=== PATIENT | male | born 1995 | race Caucasian/White ===

== ENCOUNTER 2022-04-20 16:18 | Emergency (ER) | payer SELFPAY ==
[2022-04-20] VITALS (7 sets, daily range): BP systolic 113–156; BP diastolic 57–99; PULSE 87–106; RESP 18–21; TEMP 36.7–37.2; O2SAT 94–99; BMI 27.1
--- NOTE | 2022-04-20 16:18 | ECG_ITS ---
APPROVED REPORT Exam: Resting ECG HR:109 bpm ECG Measurements Heart Rate 109 AXES CO 154 P 75 QRSd 89 QRS 85 QT 326 T -50 QTc 390 Conclusion SINUS TACHYCARDIA POSSIBLE LEFT ATRIAL ENLARGEMENT [-0.1mV P-WAVE IN V1/V2] POSSIBLE LEFT VENTRICULAR HYPERTROPHY [VOLTAGE CRITERIA PLUS LAE OR QRS WIDENING] MODERATE T-WAVE ABNORMALITY, CONSIDER INFERIOR ISCHEMIA [-0.1+ mV T-WAVE IN II/aVF] ABNORMAL ECG INTERPRETATION BASED ON A DEFAULT AGE OF 40 YEARS UNCONFIRMED REPORT Electronically signed by : Obi Baker MD 04/22/2022 21:06:00
--- NOTE | 2022-04-20 17:00 | PC.NURSE ---
COVID SWAB SENT TO LAB
--- NOTE | 2022-04-20 17:04 | XR_ITS ---
PROCEDURE INFORMATION: Exam: XR Chest Exam date and time: 04/20/2022 5:18 PM Age: 27 years old Clinical indication: Chest pressure; Patient HX: Chest pain for 1 month TECHNIQUE: Imaging protocol: Radiologic exam of the chest. Views: 1 view. COMPARISON: No relevant prior studies available. FINDINGS: Lungs: Unremarkable. No consolidation. Pleural spaces: Unremarkable. No pleural effusion. No pneumothorax. Heart/Mediastinum: Unremarkable. No cardiomegaly. Bones/joints: Unremarkable. IMPRESSION: No acute findings.
--- NOTE | 2022-04-20 17:09 | PC.NURSE ---
rad at bs
[2022-04-20 17:19] LABS: Basophils # 0.1 K/mm3 (0-0.2); Basophils % 0.6 % (0.1-2.0); Eosinophils # 0.1 K/mm3 (0.0-0.4); Eosinophils % 0.4 % (0.1-12.0); Hemoglobin 15.6 g/dL (14.1-18.0); Lymphocytes # 1.6 K/mm3 (0.7-4.5); Lymphocytes % 10.1 % (10-50); Mean Corpuscular HGB Conc 33.2 g/dL (31.8-35.4); Mean Corpuscular Hemoglobin 29.2 pg (27.0-31.2); Mean Platelet Volume 8.8 fl (7.4-10.4); Monocytes # 0.7 K/mm3 (0.1-1.0); Monocytes % 4.6 % (1.7-9.3); Neutrophils # 13.4 K/mm3 (1.8-7.8); Neutrophils % 84.3 % (37.0-80.0); Platelet Count 349 K/mm3 (142-424); Red Blood Count 5.34 M/mm3 (4.60-6.20); Red Cell Distribution Width 12.2 % (11.5-17.5); White Blood Count 15.8 K/mm3 (4.8-10.8)
[2022-04-20 17:20] LABS: Anion Gap 9.6 mEq/L (5-15); Blood Urea Nitrogen 11 mg/dl (9-20); Calcium 9.6 mg/dl (8.4-10.2); Carbon Dioxide 28 mmol/L (22.0-30.0); Chloride 103 mmol/L (98-107); Creatinine Clearance Estimated 141 mL/min (50-200); Estimated Glomerular Filt Rate 91 ml/min (>60); GFR (African American) 110 ML/MIN (>60); Glucose 102 mg/dl (74-100); Potassium 3.6 mmoL/L (3.5-5.1); Sodium 137 mmol/L (136-145)
--- NOTE | 2022-04-20 17:23 | PC.NURSE ---
pt sitting up in bed, reports now having a headache behind L ear and down his neck. Notified ER
[2022-04-20 17:25] LABS: Coronavirus 19, PCR Not Detected (NotDetected); Influenza A, PCR Not Detected (NotDetected); Influenza B, PCR Not Detected (NotDetected)
--- NOTE | 2022-04-20 17:27 | PC.NURSE ---
LARON ERNANDEZ at
[2022-04-20 17:32] LABS: MANUAL DIFFERENTIAL MANUAL DIFFERENTIAL (MANUAL DIFF)
[2022-04-20 17:33] LABS: Troponin I < 0.01 ng/ml (0.00-0.034)
--- NOTE | 2022-04-20 17:43 | CT_ITS ---
PROCEDURE INFORMATION: Exam: CTA Chest With Contrast Exam date and time: 04/20/2022 6:11 PM Age: 27 years old Clinical indication: Sternal or substernal pain; Additional info: Cp, syncope TECHNIQUE: Imaging protocol: Computed tomographic angiography of the chest with contrast. 3D rendering (Not supervised by radiologist): MIP and/or 3D reconstructed images were created by the technologist. Radiation optimization: All CT scans at this facility use at least one of these dose optimization techniques: automated exposure control; mA and/or kV adjustment per patient size (includes targeted exams where dose is matched to clinical indication); or iterative reconstruction. Contrast material: ISOVUE 370; Contrast volume: 70 ml; Contrast route: INTRAVENOUS (IV); COMPARISON: CR XR CHEST PORTABLE 04/20/2022 5:18 PM FINDINGS: Pulmonary arteries: Normal. No pulmonary emboli. Aorta: Unremarkable. No aortic aneurysm. No aortic dissection. Lungs: Unremarkable. No consolidation. No masses. Pleural spaces: Unremarkable. No pneumothorax. No pleural effusion. Heart: Unremarkable. No cardiomegaly. No pericardial effusion. Lymph nodes: Unremarkable. No enlarged lymph nodes. Bones/joints: Unremarkable. No acute fracture. Soft tissues: Unremarkable. IMPRESSION: No acute findings.
--- NOTE | 2022-04-20 17:43 | CT_ITS ---
PROCEDURE INFORMATION: Exam: CT Head Without Contrast Exam date and time: 04/20/2022 5:59 PM Age: 27 years old Clinical indication: Injury or trauma; Fall; Blunt trauma (contusions or hematomas); Without loss of consciousness; Additional info: Headache, syncope TECHNIQUE: Imaging protocol: Computed tomography of the head without contrast. Radiation optimization: All CT scans at this facility use at least one of these dose optimization techniques: automated exposure control; mA and/or kV adjustment per patient size (includes targeted exams where dose is matched to clinical indication); or iterative reconstruction. COMPARISON: No relevant prior studies available. FINDINGS: Brain: Normal. No hemorrhage. Unremarkable white matter. No mass effect. Cerebral ventricles: No ventriculomegaly. Paranasal sinuses: Visualized sinuses are unremarkable. No fluid levels. Mastoid air cells: Visualized mastoid air cells are well aerated. Bones/joints: Unremarkable. No acute fracture. Soft tissues: Unremarkable. IMPRESSION: No acute intracranial abnormality.
--- NOTE | 2022-04-20 17:43 | HMH.EDGENADL ---
ED Disposition Condition on Discharge: Good - Critical Care Critical Care Time: No <JameelJosemanuel luciano - Last Filed: 04/20/22 18:29> Condition on Discharge: Good Time of Disposition: 19:32 - Critical Care Critical Care Time: No <Meaghan Contreras - Last Filed: 04/20/22 20:53> Clinical Impression: Syncope and collapse, Neck pain Chest pain Qualifiers: Chest pain type: unspecified Qualified Code(s): R07.9 - Chest pain, unspecified Headache Qualifiers: Headache type: unspecified Headache chronicity pattern: acute headache Intractability: not intractable Qualified Code(s): R51.9 - Headache, unspecified Disposition: Still a Patient Additional Instructions: You have been evaluated for chest pain, syncope. It is very important that you follow-up with cardiology, Dr. Villasenor tomorrow in clinic. Please arrive to the [facility] cardiology clinic at 9:30 AM. Do not exert yourself or workout until you are cleared by cardiology. It is okay to take Tylenol or Motrin for pain tonight. Return to the emergency department for any new or worsening symptoms, pain, palpitations. Referrals: Provider,MD Alfredo [Primary Care Provider] - Hudson Villasenor MD [Staff Physician] - Attestation: On 04/20/22, the high probability of a clinically significant, sudden or life threatening deterioration of the following system(s) required my full and direct attention, intervention and personal management. The time I documented below is in addition to time spent performing reported procedures but includes the following listed in this critical care notation. Medical Decision Making - Medical Records Medical records reviewed: Yes: I reviewed the patient's medical records. MR Comment: Reviewed patient's emergency department note from 03/10/2022 at [facility] versus [facility]. Patient presented with similar symptoms of syncope, chest pain, unilateral left neck pain. Cardiac work-up negative including D-dimer. No CT scans or echocardiogram. - Navid Inquiry Pt receiving controlled substance: No - Lab Data Result diagrams: 04/20/22 16:25 04/20/22 16:25 <Josemanuel Ghotra - Last Filed: 04/20/22 18:29> - Lab Data Result diagrams: 04/20/22 16:25 04/20/22 16:25 <Meaghan Contreras - Last Filed: 04/20/22 20:53> Vital Signs: 04/20/22 16:24 04/20/22 16:30 04/20/22 17:00 Temperature 99.0 F Temperature Source Oral Pulse Rate 104 H 92 H Pulse Rate [Right Radial] 106 H Respiratory Rate 18 18 18 Blood Pressure 143/87 H 113/57 L Blood Pressure [Right Arm] 156/99 H Blood Pressure Mean 105 75 Blood Pressure Mean [Right Arm] 118 Blood Pressure Source [Right Arm] Automatic Cuff Blood Pressure Position [Right Arm] Sitting 02 Sat by Pulse Oximetry 98 99 99 Oxygen Delivery Method Room Air 04/20/22 17:30 04/20/22 18:29 04/20/22 18:30 Temperature Temperature Source Pulse Rate 91 H 87 87 Pulse Rate [Right Radial] Respiratory Rate 18 18 18 Blood Pressure 124/74 147/83 H 137/74 Blood Pressure [Right Arm] Blood Pressure Mean 84 100 91 Blood Pressure Mean [Right Arm] Blood Pressure Source [Right Arm] Blood Pressure Position [Right Arm] 02 Sat by Pulse Oximetry 94 L 97 97 Oxygen Delivery Method - Lab Data Lab Results 04/20/22 16:25: WBC 15.8 H, RBC 5.34, Hgb 15.6, Hct 47.0, MCV 88.0, MCH 29.2, MCHC 33.2, RDW 12.2, Plt Count 349, MPV 8.8, Neut % (Auto) 84.3 H, Lymph % (Auto) 10.1, [place] % (Auto) 4.6, Eos % (Auto) 0.4, Baso % (Auto) 0.6, Neut # (Auto) 13.4 H, Lymph # (Auto) 1.6, [place] # (Auto) 0.7, Eos # (Auto) 0.1, Baso # (Auto) 0.1, Total Counted 100, Neutrophils % (Manual) 79 H, Lymphocytes % (Manual) 15, Monocytes % (Manual) 6, Platelet Estimate Normal, RBC Morphology Normal 04/20/22 16:25: Sodium 137, Potassium 3.6, Chloride 103, Carbon Dioxide 28, Anion Gap 9.6, BUN 11, Creatinine 1.00, Estimated Creat Clear 141, Estimated GFR 91, Est GFR ( Amer) 110, Glucose 102 H,
--- NOTE | 2022-04-20 17:52 | CT_ITS ---
PROCEDURE INFORMATION: Exam: CTA Neck With Contrast Exam date and time: 04/20/2022 6:03 PM Age: 27 years old Clinical indication: Pain; Headache; Additional info: L headache, syncope TECHNIQUE: Imaging protocol: Computed tomographic angiography of the neck with contrast. 3D rendering (Not supervised by radiologist): MIP and/or 3D reconstructed images were created by the technologist. Radiation optimization: All CT scans at this facility use at least one of these dose optimization techniques: automated exposure control; mA and/or kV adjustment per patient size (includes targeted exams where dose is matched to clinical indication); or iterative reconstruction. Contrast material: [id number]; Contrast volume: 75 ml; Contrast route: INTRAVENOUS (IV); COMPARISON: CT HEAD/BRAIN WO CON 04/20/2022 5:59 PM. FINDINGS: Right common carotid artery: No stenosis. No dissection or occlusion. Right internal carotid artery: No stenosis of the extracranial segment. No dissection or occlusion. Right external carotid artery: No occlusion or stenosis of the origin. Left common carotid artery: No stenosis. No dissection or occlusion. 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 Left internal carotid artery: No stenosis of the extracranial segment. No dissection or occlusion. Left external carotid artery: No occlusion or stenosis of the origin. 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 No focal high-grade stenosis. No dissection or occlusion. Left vertebral artery: Dominant left vertebral artery. No stenosis. No dissection or occlusion. Soft tissues: There are no soft tissue masses or fluid collections. Bones/joints: No acute fracture. Lungs: Lung apices are unremarkable as visualized. No consolidation. IMPRESSION: 1. No stenosis or occlusion. 2. Additional nonemergency and chronic findings as above. REFERENCES: NASCET CRITERIA. The degree of internal carotid artery stenosis is based on NASCET criteria. Normal is no stenosis. Mild is less than 50% stenosis. Moderate is 50-69% stenosis. Severe is 70% to 99% stenosis. Total occlusion is no detectable patent lumen.
--- NOTE | 2022-04-20 17:52 | CT_ITS ---
PROCEDURE INFORMATION: Exam: CTA Head With Contrast, Arteriography Exam date and time: 04/20/2022 6:03 PM Age: 27 years old Clinical indication: Pain; Headache; Additional info: L headache, syncope TECHNIQUE: Imaging protocol: Computed tomographic angiography of the head with contrast. Exam focused on the arteries. 3D rendering (Not supervised by radiologist): MIP and/or 3D reconstructed images were created by the technologist. Radiation optimization: All CT scans at this facility use at least one of these dose optimization techniques: automated exposure control; mA and/or kV adjustment per patient size (includes targeted exams where dose is matched to clinical indication); or iterative reconstruction. Contrast material: ISOVUE 370; Contrast volume: 75 ml; Contrast route: INTRAVENOUS (IV); COMPARISON: CT HEAD/BRAIN WO CON 04/20/2022 5:59 PM FINDINGS: ANTERIOR CIRCULATION: Right internal carotid artery: Unremarkable. Intracranial segment is patent with no significant stenosis. No aneurysm. Right middle cerebral artery: Unremarkable. No occlusion or significant stenosis. No aneurysm. Right anterior cerebral artery: Unremarkable. No occlusion or significant stenosis. No aneurysm. Relatively slightly small A1 segment of the right anterior cerebral artery, patent enhancing anterior communicating artery. Left internal carotid artery: Unremarkable. Intracranial segment is patent with no significant stenosis. No aneurysm. Left middle cerebral artery: Unremarkable. No occlusion or significant stenosis. No aneurysm. Left anterior cerebral artery: Unremarkable. No occlusion or significant stenosis. No aneurysm. 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 No occlusion. No aneurysm. Left vertebral artery: Dominant left vertebral artery. No occlusion or significant stenosis. No aneurysm. Basilar artery: Unremarkable. No occlusion or significant stenosis. No aneurysm. Right posterior cerebral artery: No acute findings. The P1 segment of the right posterior cerebral artery appears hypoplastic, and there is normal variant origin of the right posterior cerebral artery arising from the right internal carotid artery. No occlusion or significant stenosis. No aneurysm. Left posterior cerebral artery: Unremarkable. No occlusion or significant stenosis. No aneurysm. Brain: No definite mass, mass effect, or midline shift. Cerebral ventricles: No ventriculomegaly. Bones/joints: No acute skull fracture. No lytic lesions. Soft tissues: There are no soft tissue masses or fluid collections. IMPRESSION: 1. No large vessel stenosis or occlusion. 2. Some developmental asymmetries, as above.
--- NOTE | 2022-04-20 17:53 | PC.NURSE ---
PT GOING FOR CT'S
[2022-04-20 18:19] LABS: Lymphocytes % 15 % (10-50); Monocytes % 6 % (2-9); Neutrophils % 79 % (42-76); Total Cells Counted 100
[2022-04-20 18:20] LABS: Platelet Estimate Normal; RBC Morphology Normal
[2022-04-20 18:56] LABS: Microscopic, Urine URINE MICROSCOPIC (MICROSCOPIC)
[2022-04-20 18:58] LABS: Appearance,Urine CLEAR (Clear); Bilirubin,Urine Negative (Negative); Blood, Urine Negative (Negative); Color,Urine YELLOW (Yellow); Glucose,Urine (UA) Negative (Negative); Ketones,Urine 1+ (Negative); Leukocyte Esterase,Urine Negative (Negative); Nitrate,Urine Negative (Negative); PH,Urine 6.5 (5.0-8.5); Protein,Urine Negative (Negative); Urobilinogen,Urine 0.2 EU/dl (0.2)
[2022-04-20 19:11] LABS: Barbiturates Screen,Urine Negative ng/ml (<200); Benzodiazepines Screen,Urine Negative ng/ml (<200)
[2022-04-20 19:12] LABS: Amphetamine/Metha Screen,Urine Negative ng/ml (<1000); Bacteria,Urine 1+ /lpf; RBC,Urine Occasional #/hpf (0-3); WBC,Urine Occasional #/hpf (0-3)
[2022-04-20 19:13] LABS: Cannabinoid Screen,Urine Negative ng/ml (<50); Cocaine Screen,Urine Negative ng/ml (<300)
[2022-04-20 19:14] LABS: Methadone Screen,Urine Negative ng/ml (<300); Opiate Screen,Urine Negative ng/ml (<300)
[2022-04-20 19:15] LABS: Phencyclidine Screen,Urine Negative ng/ml (<25)
--- NOTE | 2022-04-20 19:32 | PC.NURSE ---
Dr. Contreras s/w Dr. Villasenor. States to have pt follow up in clinic @ [id number] 04/21/22
--- NOTE | 2022-04-20 20:24 | ECG_ITS ---
APPROVED REPORT Exam: Resting ECG HR:73 bpm ECG Measurements Heart Rate 73 AXES TX 165 P 59 QRSd 89 QRS 85 QT 382 T 46 QTc 407 Conclusion SINUS RHYTHM WITH SINUS ARRHYTHMIA VOLTAGE CRITERIA FOR LVH [MEETS CRITERIA IN ONE OF: R(aVL), S(V1), R(V5), R(V5/V6)+S(V1)] NONSPECIFIC T-WAVE ABNORMALITY ABNORMAL ECG WARNING: DATA QUALITY MAY AFFECT INTERPRETATION INTERPRETATION BASED ON A DEFAULT AGE OF 42 YEARS UNCONFIRMED REPORT Electronically signed by : Obi Baker MD 04/22/2022 21:05:32
[2022-04-20 20:31] LABS: Troponin I < 0.01 ng/ml (0.00-0.034)
== END 2022-04-20 21:04 | disposition home or self-care (01) ==
PROVIDERS: Emergency Provider Emergency Medicine
DX: R07.9 Chest pain, unspecified (principal); R55 Syncope and collapse; M54.2 Cervicalgia; R51.9 Headache, unspecified
CPT/HCPCS: 70450; 70496; 70498; 71045; 71275; 80048; 80305; 81001; 84484; 85007; 85025; 93005; 96374; 96375; 99285; C9803; J2405; Q9967; U0003; U0005

== ENCOUNTER → 2022-04-21 10:15 | Outpatient (CLI) | payer SELFPAY | PROVIDERS: Visit Provider Nurse Practitioner | DX: R06.00 Dyspnea, unspecified (principal); R00.2 Palpitations; R07.9 Chest pain, unspecified | CPT/HCPCS: 93270 ==

== ENCOUNTER 2022-04-27 00:02 | Emergency (ER) | payer SELFPAY ==
[2022-04-27 00:03] VITALS: BP 154/98; PULSE 87; RESP 16; TEMP 36.9; O2SAT 100; BMI 27.1
--- NOTE | 2022-04-27 00:48 | ECG_ITS ---
APPROVED REPORT Exam: Resting ECG HR:98 bpm ECG Measurements Heart Rate 98 AXES VT 159 P 71 QRSd 92 QRS 84 QT 355 T 12 QTc 410 Conclusion SINUS RHYTHM NONSPECIFIC ST & T-WAVE ABNORMALITY BORDERLINE ECG UNCONFIRMED REPORT Electronically signed by : Obi Baker MD 04/27/2022 13:53:50
--- NOTE | 2022-04-27 00:48 | XR_ITS ---
PROCEDURE INFORMATION: Exam: XR Chest Exam date and time: 04/27/2022 1:02 AM Age: 27 years old Clinical indication: Chest wall pain; Additional info: Chest pain TECHNIQUE: Imaging protocol: Radiologic exam of the chest. Views: 2 views. COMPARISON: CR XR CHEST PORTABLE 04/20/2022 5:18 PM FINDINGS: Lungs: No focal consolidation. Pleural spaces: No pleural effusion. No pneumothorax. Heart/Mediastinum: Unremarkable cardiomediastinal silhouette. Bones/joints: No acute osseous findings. IMPRESSION: No focal consolidation.
[2022-04-27 00:55] LABS: Basophils # 0.3 K/mm3 (0-0.2); Basophils % 3.4 % (0.1-2.0); Eosinophils # 0.1 K/mm3 (0.0-0.4); Hematocrit 49.6 % (42.0-52.0); Hemoglobin 15.4 g/dL (14.1-18.0); Lymphocytes # 3.1 K/mm3 (0.7-4.5); Lymphocytes % 31.1 % (10-50); Mean Corpuscular HGB Conc 31.2 g/dL (31.8-35.4); Mean Corpuscular Hemoglobin 28.6 pg (27.0-31.2); Mean Corpuscular Volume 91.9 fl (80-94); Mean Platelet Volume 8.8 fl (7.4-10.4); Monocytes # 0.8 K/mm3 (0.1-1.0); Monocytes % 8.4 % (1.7-9.3); Neutrophils # 5.6 K/mm3 (1.8-7.8); Neutrophils % 56.2 % (37.0-80.0); Platelet Count 338 K/mm3 (142-424); Red Blood Count 5.39 M/mm3 (4.60-6.20); Red Cell Distribution Width 12.1 % (11.5-17.5); White Blood Count 9.9 K/mm3 (4.8-10.8)
[2022-04-27 01:01] LABS: Alanine Aminotransferase 45 U/L (12-78); Albumin Level 4.7 g/dl (3.5-5.0); Albumin/Globulin Ratio 1.6 (1.1-1.8); Alkaline Phosphatase 63 U/L (38-126); Anion Gap 10.4 mEq/L (5-15); Aspartate Amino Transferase 47 U/L (17-59); Bilirubin,Total 0.2 mg/dl (0.2-1.3); Blood Urea Nitrogen 4 mg/dl (9-20); Calcium 9.7 mg/dl (8.4-10.2); Carbon Dioxide 31 mmol/L (22.0-30.0); Chloride 104 mmol/L (98-107); Creatinine Clearance Estimated 177 mL/min (50-200); Estimated Glomerular Filt Rate 118 ml/min (>60); GFR (African American) 143 ML/MIN (>60); Globulin 2.9 g/dL (1.3-3.2); Glucose 89 mg/dl (74-100); Potassium 3.4 mmoL/L (3.5-5.1); Sodium 142 mmol/L (136-145); Total Protein,Serum 7.6 g/dl (6.3-8.2)
[2022-04-27 01:14] LABS: Troponin I < 0.01 ng/ml (0.00-0.034)
--- NOTE | 2022-04-27 02:18 | PC.NURSE ---
Pt declined covid test. Pt given pillow and socks for comfort. Light turned off per request. Pt updated on expected wait times. No other needs voiced at this time.
--- NOTE | 2022-04-27 02:42 | HMH.EDCP ---
ED Disposition Clinical Impression: Atypical chest pain Disposition: Home, Self-Care Condition on Discharge: Good Instructions: DI for Atypical Chest Pain Additional Instructions: see pcp for follow up this week Referrals: Provider,Referral, [Primary Care Provider] - - Critical Care Critical Care Time: No Attestation: On 04/27/22, the high probability of a clinically significant, sudden or life threatening deterioration of the following system(s) required my full and direct attention, intervention and personal management. The time I documented below is in addition to time spent performing reported procedures but includes the following listed in this critical care notation. Medical Decision Making - Medical Records Medical records reviewed: Yes: I reviewed the patient's medical records. - Navid Inquiry Pt receiving controlled substance: No Vital Signs: 04/27/22 00:03 Temperature 98.4 F Temperature Source Oral Pulse Rate [Left] 87 Respiratory Rate 16 Blood Pressure [Right Arm] 154/98 H Blood Pressure Mean [Right Arm] 116 02 Sat by Pulse Oximetry 100 Oxygen Delivery Method Room Air - Lab Data Lab results reviewed: Yes: I reviewed the patient's lab results. Lab Results 04/27/22 00:05: WBC 9.9, RBC 5.39, Hgb 15.4, Hct 49.6, MCV 91.9, MCH 28.6, MCHC 31.2 L, RDW 12.1, Plt Count 338, MPV 8.8, Neut % (Auto) 56.2, Lymph % (Auto) 31.1, [place] % (Auto) 8.4, Eos % (Auto) 1.0, Baso % (Auto) 3.4 H, Neut # (Auto) 5.6, Lymph # (Auto) 3.1, [place] # (Auto) 0.8, Eos # (Auto) 0.1, Baso # (Auto) 0.3 H 04/27/22 00:05: Sodium 142, Potassium 3.4 L, Chloride 104, Carbon Dioxide 31 H, Anion Gap 10.4, BUN 4 L, Creatinine 0.80, Estimated Creat Clear 177, Estimated GFR 118, Est GFR ( Amer) 143, Glucose 89, Calcium 9.7, Total Bilirubin 0.2, AST 47, ALT 45, Alkaline Phosphatase 63, Troponin I < 0.01, Total Protein 7.6, Albumin 4.7, Globulin 2.9, Albumin/Globulin Ratio 1.6 Result diagrams: 04/27/22 00:05 04/27/22 00:05 Orders (Tests/Meds): ED MEDICATIONS Generic Name Dose Route Start Last Admin Trade Name Freq PRN Reason Stop Dose Admin Sodium Chloride 1,000 mls @ 999 mls/hr 04/27/22 01:00 04/27/22 01:24 Sod Chlor 0.9% 1000ml Bag IV 04/27/22 02:00 999 mls/hr .Q1H1M LICHA Administration Discontinued Medications Generic Name Dose Route Start Last Admin Trade Name Freq PRN Reason Stop Dose Admin Aspirin 324 mg 04/27/22 00:48 04/27/22 01:23 Aspirin 81mg Chewable Tablet PO 04/27/22 00:49 324 mg ONCE ONE Administration ORDERS Category Date Time Status Rapid PCR Covid and Flu A/B Stat Lab 04/27/22 00:48 Ordered Troponin I Q3H Lab 04/27/22 03:30 Received Troponin I Q3H Lab 04/27/22 07:00 Ordered Urinalysis and Microscopic Stat Lab 04/27/22 00:48 Ordered - ECG Data Tracing #1 Normal Sinus Rhythm: Yes Ischemic changes: non-specific ST-T wave changes Medical Decision Narrative: has atypical chest pain and is seeing card Chest Pain HPI - General Chief Complaint: Chest Pain Stated Complaint: CP Time Seen by Provider: 04/27/22 02:00 Mode of Arrival: Ambulatory Source of Information: Patient, Medical Record Limitations: No Limitations Description of Symptoms (Recalled from ER Triage Doc. by RN): pt c/o of chest pain that started after he got out of the shower. pt says that he was not exerting himself nor had he prior caffeine or stimulant. pt states he has stabbing chest pain he rates 10/10 and a headache. pt is a Jacklyn pt since last week when a simular event happend. the pt is on a halter monitor but removed it for his shower and had not put it back on when the event started - History of Present Illness HPI narrative: has episodes of flushing sharp chest pain - seen in the ed and card clinic MD complaint: chest pain indicative of cardiac Onset (ago): hour(s) Activity at onset: after eating, light activity Pain location: left chest Severity: moderate Quality
[2022-04-27 03:59] LABS: Troponin I < 0.01 ng/ml (0.00-0.034)
[2022-04-27 04:09] VITALS: BP 150/95; PULSE 78; RESP 18; TEMP 36.6; O2SAT 99
== END 2022-04-27 04:10 | disposition home or self-care (01) ==
PROVIDERS: Emergency Provider Emergency Medicine
DX: R07.9 Chest pain, unspecified (principal); R51.9 Headache, unspecified; I10 Essential (primary) hypertension; Z82.49 Family history of ischemic heart disease and other diseases of the circulatory system; Z80.9 Family history of malignant neoplasm, unspecified; Z83.3 Family history of diabetes mellitus
CPT/HCPCS: 71046; 80053; 84484; 85025; 93005; 96360; 99285

== ENCOUNTER 2022-12-10 16:57 | Emergency (ER) | payer BC, SELFPAY ==
[2022-12-10 17:37] VITALS: BP 122/78; PULSE 83; RESP 20; TEMP 37.2; O2SAT 99; BMI 25.7
--- NOTE | 2022-12-10 17:50 | EXP.UTC ---
Discharge Plan Disposition Patient Disposition: Home, Self-Care Condition: Good Referrals Follow up/Referrals: Fritz Joseph MD [Primary Care Provider] - See instructions Activity Restrictions/Add. Instructions Additional Instructions/Restrictions: Drink extra fluids with and between meals. If you have difficulty drinking, try very small amounts of water or suck on ice chips. ? Avoid fruit juices, as these do not replace minerals and can actually increase diarrhea. ? Children and adults can use sports drinks to replenish electrolytes. Younger children and infants should use products formulated for children, like oral rehydration solutions. ? Eat food in small amounts and let your stomach recover. ? Get lots of rest. You may feel tired or weak. ? No greasy or fried foods for the next 24-48 hours BRAT diet Bananas Rice Apples and [place] ? Make sure to drink plenty of liquids ? Return if needed ? Straight to ER if any life threatening symptoms ? You was given an outpatient order for diarrhea panel, please collect specimen and bring back to outpatient lab then call back to the [facility] or follow up with family doctor for results ? Follow up with family doctor in the next 48-72 hours if no improvement or any worsening of symptoms Clinical Impressions Clinical Impression: Diarrhea Qualifiers: Diarrhea type: unspecified type Qualified Code(s): R19.7 - Diarrhea, unspecified Stand Alone Forms Stand Alone Forms: Work/School Release Instructions Patient Instructions: Diarrhea Discharge ED Provider: Kimberly Noguera [facility] [place] HPI General Stated complaint: soa diarrhea Mode of Arrival: Ambulatory Source of Information: Patient Limitations: No Limitations Time Seen by Provider: 12/10/22 17:50 Description of Symptoms (Recalled from Triage Doc. by RN): pt states he isn't feeling well, reports epigastric abdominal pain, diarrhea since yesterday, and just tired, denies nausea and vomiting HEENT Symptoms (Recalled from RN notes): No Resp Symptoms (Recalled from RN notes): No Skin Symptoms (Recalled from RN notes): No MS Symptoms (Recalled from RN notes): No Functional Status (Recalled from RN notes): wnl History of Present Illness Provider Complaint: Patient states he has been having stomach cramps, diarrhea and a little nausea States that he hasnt had any vomiting but his stomach has been all upset States that he hasnt had any fever or anything but over all has been tired and achy Denies known sick contacts Related Data Allergies Allergy/AdvReac Type Severity Reaction Status Date / Time No Known Allergies Allergy Verified 07/15/22 14:06 Worker's Comp Is this a Worker's Comp case?: No Is this an [employer] Worker's Comp?: No Is this a [place] Worker's Comp?: No [facility] Disclaimer: The information contained in this section may have been updated after the patient was seen, as this information can be updated by other users. Social History Smoking Status: Never smoker alcohol intake: current substance use type: denies use current occupational status: other Travel in the last 8 weeks: Inside the [place] ROS Obtained: Yes All systems reviewed & no additional complaints except as documented and Yes Systems reviewed as appropriate & no additional complaints except as documented Constitutional Constitutional: Reports system reviewed and no additional complaints, except as documented, Reports as per HPI, Reports body ache and Denies fever(s) ENT Ears, Nose, Mouth, and Throat: Reports system reviewed and no additional complaints, except as documented, Reports as per HPI, Denies nasal congestion, Denies nasal discharge and Denies sore throat Cardiovascular Cardiovascular: Reports system reviewed and no additional complaints, except as documented and Reports as per HPI Respiratory Respiratory: Reports system revi
[2022-12-10 18:11] VITALS: BP 120/75; PULSE 80; RESP 18; TEMP 37.1; O2SAT 100
[2022-12-10 18:50] LABS: Apearance,Urine Clear (Clear); Bilirubin,Urine Negative (Negative); Blood, Urine Negative (Negative); Color,Urine Yellow (Yellow); Glucose,Urine (UA) Negative (Negative); Ketones,Urine Negative (Negative); PH,Urine 7.5 (5.0-8.5); Protein,Urine Negative (Negative); Specific Gravity, Urine >= 1.030 (1.005-1.030); UTC Leukocyte Esterase,Urine Negative (Negative); UTC Nitrate,Urine Negative (Negative); Urobilinogen,Urine 0.2 EU/dl (0.2)
== END 2022-12-10 18:11 | disposition home or self-care (01) ==
PROVIDERS: Emergency Provider Nurse Practitioner; PCP Emergency Medicine
DX: R10.13 Epigastric pain (principal); R19.7 Diarrhea, unspecified; R11.0 Nausea
CPT/HCPCS: 81003; 99212; 99214; G0463

== ENCOUNTER 2023-05-07 20:02 | Emergency (ER) | payer BC, SELFPAY ==
[2023-05-07] VITALS (7 sets, daily range): BP systolic 127–169; BP diastolic 69–97; PULSE 82–109; RESP 16; TEMP 36.7; O2SAT 99–100; BMI 25.0
--- NOTE | 2023-05-07 21:37 | PC.NURSE ---
Rounded on pt. Pt complains of pain in neck. MD notified.
--- NOTE | 2023-05-07 22:12 | PC.NURSE ---
rounded on patient, states pain is obviously 10 out of 10 , reported to RN
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
[2023-05-07 22:48] LABS: Chloride 102 mmol/L (98-107); Potassium 3.9 mmoL/L (3.5-5.1); Sodium 141 mmol/L (136-145)
[2023-05-07 22:50] LABS: Basophils % 0.3 % (0.1-2.0); Eosinophils # 0.2 K/mm3 (0.0-0.4); Eosinophils % 1.8 % (0.1-12.0); Hematocrit 44.8 % (42.0-52.0); Hemoglobin 14.8 g/dL (14.1-18.0); Lymphocytes # 2.6 K/mm3 (0.7-4.5); Lymphocytes % 22.2 % (10-50); Mean Corpuscular Hemoglobin 28.5 pg (27.0-31.2); Mean Corpuscular Volume 86.3 fl (80-94); Mean Platelet Volume 8.3 fl (7.4-10.4); Monocytes % 8.3 % (1.7-9.3); Neutrophils # 7.9 K/mm3 (1.8-7.8); Neutrophils % 67.4 % (37.0-80.0); Platelet Count 309 K/mm3 (142-424); Red Blood Count 5.19 M/mm3 (4.60-6.20); Red Cell Distribution Width 12.4 % (11.5-17.5); White Blood Count 11.8 K/mm3 (4.8-10.8)
[2023-05-07 22:51] LABS: Anion Gap 12.9 mEq/L (5-15); Blood Urea Nitrogen 12 mg/dl (9-20); Carbon Dioxide 30 mmol/L (22.0-30.0); Creatinine Clearance Estimated 148 mL/min (50-200); Estimated Glomerular Filt Rate 102 ml/min (>60); GFR (African American) 123 ML/MIN (>60)
[2023-05-07 22:52] LABS: Calcium 9.6 mg/dl (8.4-10.2); Glucose 91 mg/dl (74-100)
--- NOTE | 2023-05-07 22:54 | PC.NURSE ---
Pt gone to RAD at this time
--- NOTE | 2023-05-07 23:18 | PC.NURSE ---
PT back in room from RAD
[2023-05-08] VITALS: BP 139/86; PULSE 73; O2SAT 99
[2023-05-08 00:50] VITALS: BP 137/71; PULSE 71; RESP 16; TEMP 36.7; O2SAT 100
== END 2023-05-08 00:51 | disposition home or self-care (01) ==
PROVIDERS: Emergency Medicine; Emergency Provider Emergency Medicine; PCP Emergency Medicine
DX: R51.9 Headache, unspecified (principal); M54.2 Cervicalgia; R68.84 Jaw pain; R10.9 Unspecified abdominal pain; Y04.0XXA Assault by unarmed brawl or fight, initial encounter
CPT/HCPCS: 70450; 70486; 70496; 70498; 72125; 73000; 73030; 74174; 80048; 85025; 99285; Q9967

== ENCOUNTER 2023-06-08 18:22 | Emergency (ER) | payer BC, SELFPAY ==
--- NOTE | 2023-06-08 19:05 | EXP.UTC ---
Discharge Plan Disposition Patient Disposition: Home, Self-Care Condition: Good Prescriptions Prescriptions: New ondansetron 4 mg Tablet,Disintegrating 4 mg PO Q8H PRN (Reason: Nausea) Qty: 12 0RF No Action dextroamphetamine-amphetamine 20 mg tablet 20 mg PO BID Qty: 60 0RF Referrals Follow up/Referrals: Fritz Joseph MD [Primary Care Provider] - See instructions Activity Restrictions/Add. Instructions Additional Instructions/Restrictions: Drink plenty of fluids. Take tylenol or ibuprofen for pain or fever. Take the medications as directed. Follow up with your regular doctor. GO TO THE ER FOR ANY WORSENING SYMPTOMS Clinical Impressions Clinical Impression: Acute viral syndrome Stand Alone Forms Stand Alone Forms: Work/School Release Instructions Patient Instructions: DI for Viral Syndrome Discharge ED Provider: Baudilio Reyes [facility] HPI General Stated complaint: cough, vomiting , Diarrhea. Time Seen by Provider: 06/08/23 19:05 History of Present Illness Provider Complaint: He states that he has had a cough, n/v/d and malaise for the past 1 day. He has also had a headache. Related Data Previous Rx's Medication Instructions Recorded dextroamphetamine-amphetamine 20 20 mg PO BID #60 tabs 05/31/23 mg tablet ondansetron 4 mg disintegrating 4 mg PO Q8H PRN Nausea #12 tabs 06/08/23 tablet Allergies Allergy/AdvReac Type Severity Reaction Status Date / Time No Known Allergies Allergy Verified 05/31/23 08:55 [facility] Disclaimer: The information contained in this section may have been updated after the patient was seen, as this information can be updated by other users. Social History Smoking Status: Never smoker alcohol intake: current substance use type: denies use current occupational status: other Travel in the last 8 weeks: Inside the [place] ROS Obtained: Yes All systems reviewed & no additional complaints except as documented Constitutional Constitutional: Reports chills and Reports fever(s) Eyes Eyes: Denies eye discharge ENT Ears, Nose, Mouth, and Throat: Reports as per HPI Cardiovascular Cardiovascular: Denies chest pain Respiratory Respiratory: Denies chest congestion and Reports cough Gastrointestinal Gastrointestingal: Reports nausea; Denies abdominal pain, constipation, cramping, diarrhea or vomiting Musculoskeletal Musculoskeletal: Denies arthralgias Integumentary/Breasts Skin/Breast: Denies rash Neurologic Neurologic: Denies paresthesias Physical Exam General General appearance: alert and in no apparent distress Head Head exam: atraumatic, normocephalic and normal inspection Eye Eye exam: Present normal appearance, PERRL and EOMI ENT ENT exam: Present normal exam, normal oropharynx, mucous membranes moist, TM's normal bilaterally and normal external ear exam Neck Neck exam: Present normal inspection, full ROM and trachea midline; Absent meningismus or lymphadenopathy Chest Chest inspection: Present normal inspection and symmetric chest wall rise; Absent tenderness Respiratory Respiratory exam: Present normal lung sounds bilaterally; Absent respiratory distress Cardiovascular Cardiovascular exam: Present regular rate and normal rhythm; Absent JVD Abdominal Exam Abdominal exam: Present soft and normal bowel sounds; Absent distention, tenderness or guarding Extremities Exam Extremities exam: Present normal inspection, full ROM and normal capillary refill; Absent calf tenderness Back Exam Back exam: Present normal inspection; Absent tenderness Neurological Exam Neurological exam: Present alert and oriented X3 Psychiatric Psychiatric exam: Present normal affect and normal mood Skin Skin exam: Present warm, dry, intact and normal color Lymphatic Lymphatic Findings: no adenopathy Medical Decision Making Medical Records Medical records reviewed: No I reviewed the patie
[2023-06-08 19:26] VITALS: BP 155/86; PULSE 60; RESP 18; TEMP 37; O2SAT 98; BMI 25.7
[2023-06-08 19:46] VITALS: BP 155/86; PULSE 60; RESP 18; TEMP 36.6; O2SAT 98
== END 2023-06-08 19:47 | disposition home or self-care (01) ==
PROVIDERS: Emergency Provider Nurse Practitioner Family; PCP Emergency Medicine
DX: R51.9 Headache, unspecified (principal); R11.2 Nausea with vomiting, unspecified; R05.9 Cough, unspecified; B34.9 Viral infection, unspecified
CPT/HCPCS: 87635; 99212; 99214; G0463